=== PATIENT | male | born 1960 | race American Indian/Alaskan Native ===

== ENCOUNTER 2017-07-01 12:54 | Outpatient (CLI) | payer OTHER ==
--- NOTE | 2017-07-01 14:38 | Cat Scan Report ---
FINAL REPORT EXAM: CT ABDOMEN PELVIS WO CON HISTORY: HEMATURIA,GROSS TECHNIQUE: CT of the abdomen and pelvis without IV contrast. Coronal and sagittal reconstructed imaging provided. PRIORS: None currently available. FINDINGS: ABDOMEN: Heterogeneous low attenuation to the liver suggests fatty infiltration or hepatocellular disease. Low-attenuation 4 mm lesion in the left liver on series 2:26 is nonspecific. Nonspecific nodular hyperplasia of the left and right adrenal gland appears mild. Gallbladder, stomach, spleen, pancreas and kidneys are unremarkable. No hydronephrosis. No nephroureteral stones. IVC is intact. Mild aortic atherosclerotic disease. No aneurysm. Retro aortic left renal vein. No periaortic retroperitoneal mass or adenopathy. [id number] stool is present throughout the colon. There is no wall thickening or inflammatory changes. Appendix is normal. Terminal ilium is unremarkable. Small bowel loops are unremarkable. No obstructive pattern. No free air. No free fluid. PELVIS: Bladder is mildly thick walled. Nonspecific. Findings could be related to bladder outlet obstruction, cystitis, or tumor. No distinct lesion. No stone. Prostate with calcification. No pelvic mass or adenopathy. Fat containing left inguinal hernia. No strangulation. Right inguinal region is unremarkable. Bones: No suspicious osseous lesions on this limited examination of the skeleton. Metastatic disease better evaluated with bone scan. Degenerative changes are in the spine. IMPRESSION: Liver appearance may be fatty or related pelvis earlier disease. Nonspecific low-attenuation lesion in the left liver. Nonspecific mild nodular hyperplasia of both adrenal glands. Mild bladder wall thickening. Findings could be related to bladder outlet obstruction, cystitis, or tumor.
== END 2017-07-01 12:55 | disposition home or self-care (01) ==
LOC: CT 12:54
PROVIDERS: ATTEND Urology
DX: K40.90 Unilateral inguinal hernia, without obstruction or gangrene, not specified as recurrent (principal); K76.89 Other specified diseases of liver; E27.8 Other specified disorders of adrenal gland; N42.89 Other specified disorders of prostate; R31.0 Gross hematuria; I70.0 Atherosclerosis of aorta
CPT/HCPCS: 74176

== ENCOUNTER 2017-07-23 10:58 | Day surgery (SDC) | payer OTHER ==
[~2017-07-23 10:58] MED LIST: ANCEF/STERILE WATER 2 GM/20 ML IV NR; FLAGYL 500 MG/100 ML 500 MG/100 ML BAG IV SCH
[2017-07-23] MEDS ORDERED: VERSED IV PRN (12:30)
--- NOTE | 2017-07-23 12:32 | Anesthesia Consultation ---
Anesthesia Consult and Med Hx Date of service: 07/23/17 - Airway Anesthetic Teeth Evaluation: Good ROM Head & Neck: Adequate Mental/Hyoid Distance: Adequate Mallampati Class: Class II Intubation Access Assessment: Good - Pulmonary Exam CTA: Yes - Cardiac Exam Cardiac Exam: RRR - Pre-Operative Health Status ASA Pre-Surgery Classification: ASA2 Proposed Anesthetic Plan: General - Pulmonary Hx Smoking: No Hx Sleep Apnea: No (GREER PRE SCREEN HIGH RISK) - Cardiovascular System Hx Hypertension: Yes (OFF MEDS X 2 YRS) - Central Nervous System Hx Back Pain: Yes - Other Systems Hx Cancer: No - Additional Comments Anesthesia Medical History Comments: Borderline hypertension. NAC previously. Otherwise healthy. Multiple dental carries, but teeth are in tact.
--- NOTE | 2017-07-23 12:34 | Anesthesia Day of Surgery ---
Anesthesia Day of Surgery - Day of Surgery Patient Examined: Yes Patient H&P Reviewed: Yes Patient is NPO: Yes
[2017-07-23] MEDS ORDERED: ANCEF/STERILE WATER 2 GM/20 ML 2 GM/20 ML SYRINGE IV NR (12:35)
[2017-07-23] MEDS ORDERED: DIPRIVAN 10 MG/ML IV ONE (12:48)
[2017-07-23] MEDS ORDERED: SUBLIMAZE ONE (12:49)
[2017-07-23] MEDS ORDERED: NACL 0.9% 1000 ML 1,000 ML IV SCH (13:00)
[2017-07-23] MEDS ORDERED: PEPCID IV NR (13:00)
[2017-07-23] MEDS ORDERED: XYLOCAINE MPF 2% ONE (13:36)
[2017-07-23] MEDS ORDERED: ZOFRAN ONE (13:36)
[2017-07-23] MEDS ORDERED: DECADRON ONE (13:36)
--- NOTE | 2017-07-23 13:39 | Short Stay Summary ---
Short Stay Documentation Date of service: 07/23/17 - History H&P: obtained from office - Allergies and Medications Current Medications: Allergies No Known Allergies Allergy (Verified 07/16/17 14:37) Home Medications Medication Instructions Recorded Confirmed Last Taken Type Sitagliptin Phos/Metformin HCl 1 tab PO QDAY 07/16/17 07/23/17 2 Days Ago History [Janumet XR 100-1,000 mg] ~07/21/17 Travoprost [Travatan Z 0.004%] 1 drop OU HS 07/23/17 07/23/17 07/21/17 History Active Medications Famotidine (Pepcid) 20 mg IV PREOP NR Stop: 07/23/17 23:00 Last Admin: 07/23/17 12:44 Dose: 20 mg Metronidazole (Flagyl 500 Mg/100 Ml) 500 mg in 100 mls @ 100 mls/hr IV PREOP MARINO Stop: 07/23/17 23:59 Cefazolin Sodium (Ancef/Sterile Water 2 Gm/20 Ml) 2 gm in 20 mls @ 80 mls/hr IV PREOP NR PRN Reason: Protocol Stop: 07/23/17 23:59 Sodium Chloride (Nacl 0.9% 1000 Ml) 1,000 mls @ 42 mls/hr IV DIRECT MARINO Last Admin: 07/23/17 12:42 Dose: 42 mls/hr Midazolam HCl (Versed) 2 mg IV PREOP PRN PRN Reason: Agitation Last Admin: 07/23/17 12:47 Dose: 2 mg - Brief post op/procedure progress note Date of procedure: 07/23/17 Pre-op diagnosis: hematuria Post-op diagnosis: other (urethral stricture) Procedure: cysto, DVIU, rpg Anesthesia: GETA Surgeon: DENNYS LEMUS Estimated blood loss: none Condition: stable - Hospital course Hospital course: cipro & norco on chart - Disposition Condition at discharge: Stable Disposition: DC-01 TO HOME OR SELFCARE Short Stay Discharge Plan Follow up with: BRANDY SMART MD [Primary Care Provider] - 7 Days
[2017-07-23] MEDS ORDERED: WATER FOR IRRIG STERILE IR ONE (13:43)
[2017-07-23] MEDS ORDERED: APRESOLINE ONE (13:52)
[2017-07-23] MEDS ORDERED: APRESOLINE IV PRN (14:12)
[2017-07-23] MEDS ORDERED: DILAUDID IV PRN (14:14)
[2017-07-23] MEDS ORDERED: DILAUDID ONE (14:18)
--- NOTE | 2017-07-23 14:49 | Operative Report ---
PREOPERATIVE DIAGNOSIS: Gross hematuria. POSTOPERATIVE DIAGNOSES: Gross hematuria, urethral stricture. PROCEDURES: Cystoscopy, direct vision internal urethrotomy, bilateral retrograde pyelogram. SURGEON: Tera Esparza M.D. ANESTHESIA: General. ESTIMATED BLOOD LOSS: Minimal. FLUIDS: Crystalloid. COMPLICATIONS: No complications. INDICATIONS: This patient is a 57-year-old gentleman referred by Dr. Eliseo Ribeiro for evaluation of hematuria. CT of abdomen and pelvis was unremarkable except for some degenerative changes in his spine. He gives a history of chronic back pain and sees a pain specialist. He has received epidural injections in the past. Risks, benefits, and complications were explained. DESCRIPTION OF PROCEDURE: The patient was taken to the operative suite and placed in the supine position. After adequate general anesthesia, he was placed in the dorsal lithotomy position and prepped and draped in a sterile fashion. Ureteroscopy was performed. Obvious stricture at the mid shaft could not advance the scope. A 0.035 Glidewire was placed. Cold knife cut at the 12 o'clock position. He had multiple small strictures from the mid shaft to the membranous urethra. Prostate was minimally obstructing. He did have a high riding bladder neck. No tumors or stones were noted in the bladder. Bilateral retrograde pyelograms were obtained with an 8 [place] Phillips catheter and 8 mL of contrast. No filling defects or obstruction. A 16-[place]-tip catheter was advanced over the wire. Rectal exam was benign. He was extubated and taken to recovery room. He will go home on Burchard and Cipro and follow up in the office. JOB# [id number] [facility]
--- NOTE | 2017-07-23 17:23 | Post Anesthesia Evaluation ---
- Post Anesthesia Evaluation Patient Participated: Yes Airway Patent: Yes Stable Respiratory Function: Yes Nausea/Vomiting: No Temp > 96.8F: Yes Pain Manageable: Yes Adequeate Hydration: Yes Anesthesia Complications: No Block Receding Appropriately: Not Applicable Patient on Ventilator: No
[2017-07-23 17:32] VITALS: BP 168/98
--- NOTE | 2017-07-24 07:37 | Fluoroscopy Report ---
RETROGRADE PYELOGRAM: History: Gross hematuria, urethral stricture. Findings: Fluoroscopy was provided by radiology during retrograde pyelogram is Dr. Esparza. 8 fluoroscopic images were captured. There is adequate filling of the ureters and intrarenal collecting systems with no filling defects or anatomic abnormalities identified. Impression: No abnormality identified.
== END 2017-07-23 15:47 | disposition home or self-care (01) ==
LOC: OR 10:58
PROVIDERS: ATTEND Urology
DX: N35.8 Other urethral stricture (principal); R31.0 Gross hematuria; I10 Essential (primary) hypertension; E11.9 Type 2 diabetes mellitus without complications; Z79.84 Long term (current) use of oral hypoglycemic drugs
CPT/HCPCS: 52276; 74420; 82962; A4217; C1758; C1769; J0360; J0690; J1100; J1170; J2250; J2405; J2704; J3010; J7030; Q9967